=== PATIENT | female | born 1945 | race Caucasian/White ===

== ENCOUNTER 2021-07-14 10:29 | Outpatient (CLI) | payer MEDICARE ==
[~2021-07-14 10:29] MED LIST: ATEN100T88 PO; LEVO75TA6 PO; LVT.025T PO; LVT.05T PO
== END 2021-07-14 10:55 ==
LOC: SLEEP 10:29
PROVIDERS: ATTEND Nurse Practitioner Family
DX: G47.10 Hypersomnia, unspecified (principal); G47.9 Sleep disorder, unspecified
CPT/HCPCS: G0399

== ENCOUNTER → 2021-07-18 | Outpatient (CLI) | payer MEDICARE ==
[~2021-07-18] MED LIST changes: +BARIUM for suspension 96% w/w (Vanilla Silq Medium Density) PO ONE; +BARIUM for suspension 98% w/w (Vanilla Silq High Density) PO ONE
--- NOTE | 2021-07-18 13:06 | Diagnostic Imaging Report ---
INDICATION: Mucous build-up. Patient ingested effervescent crystals as well as thin and thick barium and imaging of the esophagus was performed in multiple obliquities. A total of 0.9 minutes of fluoroscopic time was utilized. Preliminary radiograph of the chest is unremarkable. The esophagus has a smooth contour. No mass or stricture is identified. No hiatal hernia or gastroesophageal reflux was demonstrated. Images of the stomach are unremarkable. IMPRESSION: Unremarkable esophagram. Dictated by: Dictated on workstation # [id number]
== END ==
LOC: RAD 10:32
PROVIDERS: ATTEND Nurse Practitioner Family
DX: R13.12 Dysphagia, oropharyngeal phase (principal); R05.3 Chronic cough; R25.1 Tremor, unspecified
CPT/HCPCS: 74220

== ENCOUNTER 2022-03-19 15:23 | Outpatient (RCR) | payer MEDICARE ==
[~2022-03-19 15:23] MED LIST changes: -BARIUM for suspension 96% w/w (Vanilla Silq Medium Density) PO ONE; -BARIUM for suspension 98% w/w (Vanilla Silq High Density) PO ONE
== END 2022-03-21 | disposition home or self-care (01) ==
PROVIDERS: ATTEND Family Medicine
DX: G20 Parkinson's disease (principal)

== ENCOUNTER 2022-04-17 14:09 | Outpatient (RCR) | payer MEDICARE | END 2022-04-17 14:47 | disposition home or self-care (01) | PROVIDERS: ATTEND Family Medicine | DX: G20 Parkinson's disease (principal) ==

== ENCOUNTER 2022-11-03 05:15 | Observation (INO) | payer MEDICARE, MEDICAID ==
[~2022-11-03] VITALS: Ht 170.1 cm; Wt 98.1 kg
--- NOTE | 2022-11-03 05:29 | ED General ---
General Stated Complaint: SHAKING,DIZZY,BLOOD PRESSURE 203/96 Source of Information: Patient Exam Limitations: No Limitations (JASPAL BEAUCHAMP MD) History of Present Illness Date Seen by Provider: Nov 03, 2022 Time Seen by Provider: 05:27 Initial Comments Patient is a 77yo female with a complaint of increasing "full body" tremors. SHe states she just feels "bad". This morning has a headache/ "pressure" feeling in her head. Also had an episode of chest pain that "just hurts" in the left side - that seems to feel a little better right now. She does take daily baby aspirin. She did not have any other symptoms with the chest pain. SHe denies illness. She has not changed her medications recently nor has she skipped any. No N/V/D or urinary complaints. She does not sleep well - usually only about 4h a night. SHe complains that "drainage" bothers her laying on pillows at night. Timing/Duration: 2-3 Days Severity: Severe Associated Systoms: Chest Pain ("hurts"), Headaches, Malaise, Other ("full body tremors") (JASPAL BEAUCHAMP MD) Allergies and Home Medications Allergies Coded Allergies: No Known Drug Allergies (Unverified , 11/15/09) Patient Home Medication List Home Medication List Reviewed: Yes (JASPAL BEAUCHAMP MD) Atenolol (Tenormin 100 Mg) 100 Mg Tablet, 1 EACH PO DAILY, (Reported) Entered as Reported by: KONRAD BERG on 11/15/09 1330 Levothyroxine Sodium (Levothyroxine 75 Mcg Tab) 75 Mcg Tablet, 75 MCG PO DAILY, (Reported) Entered as Reported by: TRACY KAPADIA on 11/17/13 0834 Review of Systems Review of Systems Constitutional: malaise EENTM: no symptoms reported Respiratory: no symptoms reported Cardiovascular: chest pain Gastrointestinal: no symptoms reported Genitourinary: no symptoms reported : No Musculoskeletal: no symptoms reported Skin: no symptoms reported Psychiatric/Neurological: Tremors (more intense) (JASPAL BEAUCHAMP MD) All Other Systems Reviewed Negative Unless Noted: Yes (JASPAL BEAUCHAMP MD) Past Bbvudat-Rcdpsf-Asocyh Hx Past Medical History Reproductive Disorders: Yes (PMB) (JASPAL BEAUCHAMP MD) Physical Exam Vital Signs Vital Signs - First Documented 11/03/22 05:23 Temp 37.0 Pulse 64 Resp 22 B/P (MAP) 208/107 (140) Pulse Ox 98 O2 Delivery Room Air (ZHENG RASHID MD) Vital Signs Capillary Refill : (JASPAL BEAUCHAMP MD) Height, Weight, BMI Height: 5'7.00" Weight: 178lbs. oz. 80.592826ni; BMI Method:Stated General Appearance: WD/WN, Obese Eyes: Bilateral Eye Normal Inspection, Bilateral Eye PERRL, Bilateral Eye EOMI HEENT: PERRL/EOMI Respiratory: Lungs Clear, Normal Breath Sounds, No Accessory Muscle Use, No Respiratory Distress Cardiovascular: Regular Rate, Rhythm, Normal Peripheral Pulses, Bradycardia (60) Gastrointestinal: Non Tender, Soft Extremity: Normal Capillary Refill, Normal Inspection, Normal Range of Motion, No Pedal Edema Neurologic/Psychiatric: Alert, Oriented x3, Other (coarse full body tremor) Skin: Normal Color, Warm/Dry (JASPAL BEAUCHAMP MD) Progress/Results/Core Measures Suspected Sepsis SIRS Temperature: Pulse: Respiratory Rate: Laboratory Tests 11/03/22 05:30: White Blood Count 6.6 Blood Pressure / Mean: Laboratory Tests 11/03/22 05:30: INR Comment 0.9, Platelet Count 214 (JASPAL BEAUCHAMP MD) Results/Orders Lab Results Laboratory Tests Test 11/03/22 05:30 11/03/22 06:02 11/03/22 07:35 Range/Units White Blood Count 6.6 4.3-11.0 10^3/uL Red Blood Count 4.58 3.80-5.11 10^6/uL Hemoglobin 14.0 11.5-16.0 g/dL Hematocrit 41 35-52 % Mean Corpuscular Volume 90 80-99 fL Mean Corpuscular Hemoglobin 31 25-34 pg Mean Corpuscular Hemoglobin Concent 34 32-36 g/dL Red Cell Distribution Width 12.6 10.0-14.5 % Platelet Count 214 130-400 10^3/uL Mean Platelet Volume 9.3 9.0-12.2 fL Immature Granulocyte % (Auto) 1 % Neutrophils (%) (Auto) 64 42-75 % Lymphocytes (%) (Auto) 23 12-44 % Monocytes (%) (Auto) 7 0-12 % Eosinophils (%) (Auto) 6 0-10 % Basophils (%) (Auto) 1 0-10 % Neutrophils # (Auto) 4.2 1.8-7.8 10^3/uL Lymphocytes # (Auto) 1.5 1.0-4.0 10^3/uL Monocytes # (Auto) 0.4 0.0-1.0 10^3/uL Eosinophils # (Auto) 0.4 H 0.0-0.3 10^3/uL Basophils # (Auto) 0.0 0.0-0.1 10^3/uL Immature Granulocyte # (Auto) 0.0 0.0-0.1 10^3/uL Prothrombin Time 12.3 12.2-14.7 SEC INR Comment 0.9 0.8-1.4 Activated Partial Thromboplast Time 32 24-35 SEC Sodium Level 141 135-145 MMOL/L Potassium Level 3.9 3.6-5.0 MMOL/L Chloride Level 107 98-107 MMOL/L Carbon Dioxide Level 27 21-32 MMOL/L Anion Gap 7 5-14 MMOL/L Blood Urea Nitrogen 20 H 7-18 MG/DL Creatinine 1.32 H 0.60-1.30 MG/DL Estimat Glomerular Filtration Rate 42 BUN/Creatinine Ratio 15 Glucose Level 92 70-105 MG/DL Calcium Level 9.0 8.5-10.1 MG/DL Corrected Calcium 9.0 8.5-10.1 MG/DL Magnesium Level 2.0 1.6-2.4 MG/DL Total Bilirubin 0.5 0.1-1.0 MG/DL Aspartate Amino Transf (AST/SGOT) 20 5-34 U/L Alanine Aminotransferase (ALT/SGPT) 15 0-55 U/L Alkaline Phosphatase 108 40-136 U/L Troponin I < 0.028 <0.028 NG/ML Total Protein 6.9 6.4-8.2 GM/DL Albumin 4.0 3.2-4.5 GM/DL B-Type Natriuretic Peptide 385.8 H <100.0 PG/ML Thyroid Stimulating Hormone (TSH) 6.68 H 0.35-4.94 UIU/ML Free Thyroxine 0.92 0.70-1.48 NG/DL Urine Color YELLOW Urine Clarity CLEAR Urine pH 7.5 5-9 Urine Specific [place] 1.010 L 1.016-1.022 Urine Protein NEGATIVE NEGATIVE Urine Glucose (UA) NEGATIVE NEGATIVE Urine Ketones NEGATIVE NEGATIVE Urine Nitrite NEGATIVE NEGATIVE Urine Bilirubin NEGATIVE NEGATIVE Urine Urobilinogen 0.2 < = 1.0 MG/DL Urine Leukocyte Esterase NEGATIVE NEGATIVE Urine RBC (Auto) NEGATIVE NEGATIVE Urine RBC NONE /HPF Urine WBC NONE /HPF Urine Squamous Epithelial Cells RARE /HPF Urine Crystals NONE /LPF Urine Bacteria NEGATIVE /HPF Urine Casts NONE /LPF Urine Mucus NEGATIVE /LPF Urine Culture Indicated NO (ZHENG RASHID MD) My Orders Orders - ZHENG RASHID MD Bnp Lino (11/03/22 05:59) Thyroid Stimulating Hormone (11/03/22 05:59) Free T4 (Free Thyroxine) (11/03/22 05:59) Ekg Tracing (11/03/22 06:11) Lactated Ringers (Lr 1000 Ml Iv Solution (11/03/22 06:15) Ct Angio Head/Neck (11/03/22 06:14) Iohexol Injection (Omnipaque 350 Mg/Ml 1 (11/03/22 06:30) Received Contrast (Hold Metformin- Contr (11/03/22 06:30) Ns (Ivpb) 100 Ml (Sodium Chloride 0.9% 1 (11/03/22 06:30) Robin Cath (11/03/22 07:32) Covid 19 Inhouse Test (11/03/22 10:06) Influenza A And B By Pcr (11/03/22 10:06) (ZHENG RASHID MD) Medications Given in ED Current Medications Medications Dose Ordered Sig/Citlali Route Start Time Stop Time Status Last Admin Dose Admin Aspirin 81 mg STK-MED ONCE .ROUTE 11/03/22 05:45 11/03/22 05:48 DC 11/03/22 05:51 324 MG Hydralazine HCl 20 mg STK-MED ONCE .ROUTE 11/03/22 05:45 11/03/22 05:48 DC 11/03/22 05:50 20 MG Iohexol 75 ml ONCE ONCE IV 11/03/22 06:30 11/03/22 06:31 DC 11/03/22 07:00 75 ML Lactated Ringer's 1,000 ml @ 200 mls/hr Q5H ONCE IV 11/03/22 06:15 11/03/22 11:14 11/03/22 06:26 200 MLS/HR Sodium Chloride 100 ml ONCE ONCE IV 11/03/22 06:30 11/03/22 06:31 DC 11/03/22 07:00 80 ML (ZHENG RASHID MD) Vital Signs/I&O 11/03/22 05:23 Temp 37.0 Pulse 64 Resp 22 B/P (MAP) 208/107 (140) Pulse Ox 98 O2 Delivery Room Air (ZHENG RASHID MD) Vital Signs/I&O Capillary Refill : (JASPAL BEAUCHAMP MD) Progress Note #1: Time: 06:16 Progress Note Care of this patient was assumed from Dr. Beauchamp at shift change. Clinical history and past medical history were reviewed. Patient had been given hydralazine. Blood pressure has dropped significantly down to 133/60. Patient now feels very lightheaded and states that she is repeatedly "passing out". During my assessment, she appears to be lightheaded and will flop her head to the side periodically. However, she has not completely lost consciousness and responds to voice. On my assessment she has clear lungs with regular rate and rhythm to auscultation. Significant carotid bruit is noted on the right. I am concerned that she has carotid stenosis that has caused decrease cerebral flow with her drop in blood pressure. We will obtain a CT angiogram of head and neck. Her renal function is marginal and her blood pressures have dropped significantly prompting the order of a liter of IV fluid. We will be cautious with administration of the fluid as I do not yet have a chest x-ray or BNP and unaware of her ejection fraction. Progress Note #2: Time: 06:25 Progress Note Patient remains alert at this time. She had a blood pressure dropped down to 79/56. Her IV fluids are now bolusing. A repeat blood pressure after being placed in a partial Trendelenburg with her head at about 15 degrees in her legs raised about 15 degrees was 147/69. We will halt CT angiogram until we have at least 1 more acceptable blood pressure. Progress Note #3: Time: 09:12 Progress Note Patient has not been monitored quite closely. She has continued to have labile blood pressures. Systolic blood pressure has been as low as 122 and as high as 168 over the past few hours. She received a full liter of LR and feels much improved. She is no longer feeling significantly lightheaded and the near sync opal episodes have stopped. She is alert and jovial with a good sense of humor. CT angiogram was reviewed by me. Plaquing in the right carotid near the bifurcation was noted. On review of the radiologist's report stenosis of 50% was noted. This is not critical and symptoms of near syncope have resolved with hydration. The remainder of the CT reads by the radiologist were reviewed and no other significant acute findings or pathologies were reported. Labs were reviewed in their entirety including CBC, CMP, troponin, magnesium, BNP, coag panel, and thyroid studies. BNP was mildly elevated at 385 and TSH was mildly elevated at 6.68. Labs were otherwise unremarkable by my interpretation. Chest x-ray was viewed by me and was relatively unremarkable by my interpretation. Radiologist's report indicated mild cardiomegaly and mild vascular congestion. Patient has been having a lot of difficulty with clearing phlegm which she believes originates from sinus drainage. She takes an allergy pill daily. She previously took nasal sprays but has not taken them for months. Patient was able to cough up some phlegm and now feels much better in regard to her breathing and swallowing. A barium swallow study was recently performed and results were reviewed. Report notes a normal barium swallow study. I am uncomfortable with the extreme hypertension the patient presented with and the extreme response she had to treatment resulting in numerous near syncopal episodes. Although she is much improved at present, I am recommending admission for further observation and evaluation of her blood pressure problems as well as her tremor. Patient notes that she has not received her morning medications yet. Progress Note #4: Time: 10:11 Progress Note Patient has been relatively stable. Present blood pressure is 149/72. I have discussed the case with Dr. Hawkins as admitting hospitalist and Dr. Mccormack as consulting supervisor model making. Dr. Hawkins requested admission for observation to the cardiac stepdown unit with the cardiology consultation. She also requested a COVID/flu swab be obtained. I discussed CODE STATUS with the patient and family. Patient remains full code at this time. (ZHENG RASHID MD) ECG Initial ECG Impression Date: Nov 03, 2022 Initial ECG Impression Time: 05:40 Initial ECG Rate: 60 Initial ECG Rhythm: Normal Sinus, S.Puma Initial ECG Intervals: Normal Initial ECG Impression: Normal (JASPAL BEAUCHAMP MD) Diagnostic Imaging Diagonstic Imaging: Xray Plain Films/CT/US/NM/MRI: chest Comments NAME: RYAN DEVINE [facility] REC#: [id number] PT STATUS: REG ER : 1945 PHYSICIAN: JASPAL BEAUCHAMP MD ADMIT DATE: 11/03/22/ER Draft Date of Exam:11/03/22 CHEST 1 VIEW, AP/PA ONLY HISTORY: Chest pain TECHNIQUE: Frontal view the chest COMPARISON: None FINDINGS: Lung volumes are large. No consolidation is seen. There is mild cardiomegaly with mild central vascular congestion. There is no large effusion or pneumothorax. IMPRESSION: 1. Mild cardiomegaly with mild central vascular congestion. Dictated on workstation # [id number] Dict: 11/03/2221 Trans: 11/03/22 0724 [facility] [id number] Interpreted by: TOD COLES MD Diagonstic Imaging: CT Plain Films/CT/US/NM/MRI: other (Angiogram head and neck) Comments NAME: RYAN DEVINE [facility] REC#: [id number] PT STATUS: REG ER : 1945 PHYSICIAN: ZHENG RASHID MD ADMIT DATE: 11/03/22/ER Draft Date of Exam:11/03/22 CT ANGIO HEAD/NECK PROCEDURE: CT angiography of the head and CT angiography of the neck with and without contrast. TECHNIQUE: Contiguous noncontrast images were obtained from the skull base through the vertex. After intravenous contrast administration, helical CT angiography of the neck was performed. Source data was reformatted into 3D MIP projections. Delayed post contrast acquisition was also obtained. Auto Exposure Controls were utilized during the CT exam to meet ALARA standards for radiation dose reduction. INDICATION: Carotid bruit, syncope, dizziness tremors COMPARISON: None FINDINGS: The precontrast images of the head demonstrate generalized parenchymal volume loss. There is no midline shift or mass effect. No acute intracranial hemorrhage is seen. There is no CT evidence of acute territorial ischemia. The calvarium appears intact. There is hyperostosis frontalis. Visualized paranasal sinuses appear clear. Postcontrast images demonstrate no enhancing lesions. The right common carotid artery demonstrates atherosclerosis distally at the bifurcation with about 50% narrowing. The right internal carotid artery is patent. The left internal carotid artery is widely patent. The left common carotid artery demonstrates mild atherosclerosis. The right vertebral artery is dominant. No abnormalities are seen in the bilateral vertebral arteries. The anterior communicating artery is not well seen. The anterior cerebral arteries appear to be widely patent bilaterally. The middle cerebral arteries are widely patent. The posterior communicating arteries are faintly visible. The posterior cerebral arteries appear normal. The superior cerebellar arteries are normal. The basilar artery appears normal. The dural sinuses demonstrate no filling defects to suggest thrombus. There are degenerative changes in the spine. No acute abnormalities seen in the surrounding soft tissues. IMPRESSION: 1. Atherosclerosis at the right carotid bifurcation causing about 50% stenosis. No other findings of stenosis or large vessel occlusion are seen in the head and neck. 2. No acute intracranial hemorrhage or CT evidence of acute territorial ischemia. Dictated on workstation # [id number] Dict: 11/03/22 0721 Trans: 11/03/22 0756 [facility] [id number] Interpreted by: TOD COLES MD (ZHENG RASHID MD) Departure Communication (Admissions) Time/Spoke to Admitting Phy: 10:07 Dr. Hawkins Time/Spoke to Consulting Phy: 10:08 Dr. Mccormack (ZHENG RASHID MD) Impression Primary Impression: Hypertensive urgency Additional Impressions: Hypotension Qualified Codes: I95.9 - Hypotension, unspecified Near syncope Tremor Disposition: ADMITTED INPATIENT Condition: Improved Admissions Decision to Admit Reason: Admit from ER (General) Decision to Admit/Date: Nov 03, 2022 Time/Decision to Admit Time: 10:07 (ZHENG RASHID MD) Departure-Patient Inst. Referrals: RAYMOND CEDILLO MD (PCP/Family) Primary Care Physician JASPAL BEAUCHAMP MD Nov 03, 2022 05:28 ZHENG RASHID MD Nov 03, 2022 06:19
[2022-11-03] MEDS ORDERED: hydrALAZINE INJECTION 20 MG/ML VIAL ONE (05:45)
[2022-11-03] MEDS ORDERED: ASPIRIN 81 MG CHEWABLE TABLET ONE (05:45)
[2022-11-03 05:48] LABS: BASOPHILS % (AUTO) 1 % (0-10); EOSINOPHILS # (AUTO) 0.4 10^3/uL (0.0-0.3); EOSINOPHILS % (AUTO) 6 % (0-10); HEMATOCRIT 41 % (35-52); LYMPHOCYTES # (AUTO) 1.5 10^3/uL (1.0-4.0); LYMPHOCYTES % (AUTO) 23 % (12-44); MEAN CORPUSCULAR HEMOGLOBIN 31 pg (25-34); MEAN CORPUSCULAR HGB CONC 34 g/dL (32-36); MEAN CORPUSCULAR VOLUME 90 fL (80-99); MEAN PLATELET VOLUME 9.3 fL (9.0-12.2); MONOCYTES # (AUTO) 0.4 10^3/uL (0.0-1.0); MONOCYTES % (AUTO) 7 % (0-12); NEUTROPHILS # (AUTO) 4.2 10^3/uL (1.8-7.8); NEUTROPHILS % (AUTO) 64 % (42-75); PLATELET COUNT 214 10^3/uL (130-400); WHITE BLOOD COUNT 6.6 10^3/uL (4.3-11.0)
[2022-11-03 05:53] LABS: INR 0.9 (0.8-1.4); PROTHROMBIN TIME PATIENT 12.3 SEC (12.2-14.7)
[2022-11-03 06:00] LABS: ALANINE AMINOTRANSFERASE 15 U/L (0-55); ALKALINE PHOSPHATASE 108 U/L (40-136); BILIRUBIN,TOTAL 0.5 MG/DL (0.1-1.0); BUN/CREATININE RATIO 15; CARBON DIOXIDE 27 MMOL/L (21-32); CHLORIDE 107 MMOL/L (98-107); CREATININE SERUM 1.32 MG/DL (0.60-1.30); GFR ESTIMATED 42; GLUCOSE 92 MG/DL (70-105); POTASSIUM 3.9 MMOL/L (3.6-5.0); SODIUM 141 MMOL/L (135-145); TOTAL PROTEIN 6.9 GM/DL (6.4-8.2)
[2022-11-03] MEDS ORDERED: LACTATED RINGERS 1,000 ML IV ONE (06:15)
[2022-11-03] MEDS ORDERED: NS 100 ML (IVPB) BAG IV ONE (06:30)
[2022-11-03] MEDS ORDERED: IOHEXOL 350 MG/ML 100 ML (OMNIPAQUE 350) VIAL IV ONE (06:30)
[2022-11-03] MEDS ORDERED: HOLD METFORMIN - RECEIVED CONTRAST 20 ML VIAL IV SCH (06:30)
[2022-11-03 06:48] LABS: FREE T4 (FREE THYROXINE) 0.92 NG/DL (0.70-1.48)
--- NOTE | 2022-11-03 07:24 | Diagnostic Imaging Report ---
HISTORY: Chest pain TECHNIQUE: Frontal view the chest COMPARISON: None FINDINGS: Lung volumes are large. No consolidation is seen. There is mild cardiomegaly with mild central vascular congestion. There is no large effusion or pneumothorax. IMPRESSION: 1. Mild cardiomegaly with mild central vascular congestion. Dictated by: Dictated on workstation # [id number]
[2022-11-03 07:53] LABS: BACTERIA,URINE NEGATIVE /HPF; BILIRUBIN,URINE NEGATIVE (NEGATIVE); CLARITY,URINE CLEAR; COLOR,URINE YELLOW; GLUCOSE, URINE (UA) NEGATIVE (NEGATIVE); KETONES,URINE NEGATIVE (NEGATIVE); LEUKOCYTE ESTERASE ,URINE NEGATIVE (NEGATIVE); NITRITE,URINE NEGATIVE (NEGATIVE); PH,URINE 7.5 (5-9); PROTEIN,URINE NEGATIVE (NEGATIVE); SQUAMOUS EPITHELIAL CELL,UR RARE /HPF
--- NOTE | 2022-11-03 07:56 | Diagnostic Imaging Report ---
PROCEDURE: CT angiography of the head and CT angiography of the neck with and without contrast. TECHNIQUE: Contiguous noncontrast images were obtained from the skull base through the vertex. After intravenous contrast administration, helical CT angiography of the neck was performed. Source data was reformatted into 3D MIP projections. Delayed post contrast acquisition was also obtained. Auto Exposure Controls were utilized during the CT exam to meet ALARA standards for radiation dose reduction. INDICATION: Carotid bruit, syncope, dizziness tremors COMPARISON: None FINDINGS: The precontrast images of the head demonstrate generalized parenchymal volume loss. There is no midline shift or mass effect. No acute intracranial hemorrhage is seen. There is no CT evidence of acute territorial ischemia. The calvarium appears intact. There is hyperostosis frontalis. Visualized paranasal sinuses appear clear. Postcontrast images demonstrate no enhancing lesions. The right common carotid artery demonstrates atherosclerosis distally at the bifurcation with about 50% narrowing. The right internal carotid artery is patent. The left internal carotid artery is widely patent. The left common carotid artery demonstrates mild atherosclerosis. The right vertebral artery is dominant. No abnormalities are seen in the bilateral vertebral arteries. The anterior communicating artery is not well seen. The anterior cerebral arteries appear to be widely patent bilaterally. The middle cerebral arteries are widely patent. The posterior communicating arteries are faintly visible. The posterior cerebral arteries appear normal. The superior cerebellar arteries are normal. The basilar artery appears normal. The dural sinuses demonstrate no filling defects to suggest thrombus. There are degenerative changes in the spine. No acute abnormalities seen in the surrounding soft tissues. IMPRESSION: 1. Atherosclerosis at the right carotid bifurcation causing about 50% stenosis. No other findings of stenosis or large vessel occlusion are seen in the head and neck. 2. No acute intracranial hemorrhage or CT evidence of acute territorial ischemia. Dictated by: Dictated on workstation # [id number]
[2022-11-03 11:56] VITALS: BP 163/83
[2022-11-03] MEDS ORDERED: ACETAMINOPHEN 325 MG TABLET PO PRN (12:00)
[2022-11-03] MEDS ORDERED: ALPRAZolam 0.25 MG TABLET PO PRN (12:00)
[2022-11-03] MEDS ORDERED: BISACODYL 10 MG SUPPOSITORY PR PRN (12:00)
[2022-11-03] MEDS ORDERED: ONDANSETRON 4 MG (ZOFRAN) ORAL DISSOLVE TAB PO PRN (12:00)
[2022-11-03] MEDS ORDERED: HYDROmorphone INJECTION 2 MG/ML VIAL IV PRN (12:00)
[2022-11-03] MEDS ORDERED: ENOXAPARIN 40 MG/0.4 ML SYRINGE SC SCH (12:00)
[2022-11-03] MEDS ORDERED: polyethylene glycoL POWDER 17 GM (MIRALAX) PACK PO PRN (12:00)
[2022-11-03] MEDS ORDERED: ANTACID SUSPENSION 30 ML UDC PO PRN (12:00)
[2022-11-03] MEDS ORDERED: CALCIUM CARBONATE 500 MG CHEW TABLET PO PRN (12:00)
[2022-11-03] MEDS ORDERED: diphenhydrAMINE INJ 50 MG/ML VIAL IVP PRN (12:00)
[2022-11-03] MEDS ORDERED: MILK OF MAGNESIA 400 MG/5 ML 30 ML UDC PO PRN (12:00)
[2022-11-03] MEDS ORDERED: diphenhydrAMINE 25 MG TABLET PO PRN (12:00)
[2022-11-03] MEDS ORDERED: LACTULOSE SYRUP 10GM/15ML 30ML UDC PO PRN (12:00)
[2022-11-03] MEDS ORDERED: MELATONIN 3 MG TABLET PO PRN (12:00)
[2022-11-03] MEDS ORDERED: oxyCODONE IMMEDIATE RELEASE 5 MG TABLET PO PRN (12:00)
[2022-11-03] MEDS ORDERED: ONDANSETRON 4 MG/2 ML (SDV) Z0FRAN IV PRN (12:00)
[2022-11-03] MEDS: NS IV 1000 ML 1,000 ML IV SCH (12:46)
[2022-11-03] MEDS ORDERED: RT-ALBUTEROL SULF 2.5 MG/3 ML PRE-MIX VIAL INH PRN (13:30)
[2022-11-03] MEDS: LOSARTAN 100 MG TABLET PO SCH (13:53)
[2022-11-03] MEDS ORDERED: ASPI-1238 PO (14:25)
[2022-11-03] MEDS ORDERED: LEVO125T6 PO ×2 (14:25)
[2022-11-03] MEDS ORDERED: ATEN50TA PO (14:25)
[2022-11-03] MEDS ORDERED: PRAM0.5T9 PO (14:25)
[2022-11-03] MEDS ORDERED: LORA10TA7 PO (14:25)
[2022-11-03] MEDS ORDERED: MULT-1136 PO (14:25)
--- NOTE | 2022-11-03 14:39 | History & Physical ---
SUTTON 11/03/22 1439: History of Present Illness History of Present Illness Reason for visit/HPI CC: Orthostasis & hypertensive urgency HPI: 77 y/o female with significant history of hypothyroidism and essential tremors in the hand presented to the ED with full body tremors, blood pressure of 208/107 and left sided chest pain. On 11/02/22 the patient said she felt foggy and dizzy in her head and woke up the next morning with full body tremors and her home bp monitor read 207/96. Her grandson and daughter brought her into the ER and stated she normally has an essential tremor isolated to her hands but has had multiple full body tremors since the yesterday which has never occurred before. While in the ED patient has been through multiple near syncope episodes with the longest lasting 45 sec. She says she feels dizzy with her head dropping sideways, but can still hear everything and is able to jump right back into conversation. Her family says it occurs when she sits up past a certain point so they keep her reclined. Patients blood pressure has been fluctuating from 120's to the 160's but she has not had another full body tremor or syncopal episode. The left chest pain does not radiate and she does not report any symptoms of nausea or vomiting. She did note a headache that has been present since her tremors started but when I met her she said she felt less pressure. Initial labs showed a pre-renal BRETT and CTA showed a plaque in the right carotid near the bi furcation with 50% stenosis. CT of the chest showed mild cardiomegaly with vascular congestion. Date of Admission Nov 03, 2022 at 11:24 Date Seen by a Provider: Nov 03, 2022 Time Seen by a Provider: 10:30 I consulted on this patient on 11/03/22 14:31 Attending Physician Irish Guerra MD Admitting Physician Admitting Physician: Philly Mcrae DO Attending Physician: Philly Mcrae DO Consult Allergies and Home Medications Allergies Coded Allergies: No Known Allergies (Unverified Allergy, Unknown, 11/03/22) Patient and related family reported no known allergies Patient Home Medication List Home Medication List Reviewed: Yes Aspirin (Aspirin EC) 81 Mg Tablet.dr 81 MG PO 1200, (Reported) Entered as Reported by: ERLIN SHERIDAN on 8/1424 Last Action: Reviewed Atenolol (Atenolol) 50 Mg Tablet, 100 MG PO BID, (Reported) Entered as Reported by: ERLIN SHERIDAN on 11/03/221424 Last Action: Reviewed Levothyroxine Sodium (Levothyroxine Sodium) 125 Mcg Tablet, 125 MG PO MO,,WE,TH,FR, (Reported) Entered as Reported by: ERLIN SHERIDAN on 11/03/221424 Last Action: Reviewed Levothyroxine Sodium (Levothyroxine Sodium) 125 Mcg Tablet, 62.5 MCG PO GOMEZ,SA, (Reported) Entered as Reported by: ERLIN SHERIDAN on 11/03/221424 Last Action: Reviewed Loratadine (Loratadine) 10 Mg Tablet, 10 MG PO HS, (Reported) Entered as Reported by: ERLIN SHERIDAN on 11/03/221424 Last Action: Reviewed Multivitamin (Multivitamin) 1 Each Tablet, 1 EACH PO DAILY, (Reported) Entered as Reported by: ERLIN SHERIDAN on 11/03/221424 Last Action: Reviewed Pramipexole Di-HCl (Pramipexole Dihydrochloride) 0.5 Mg Tablet, 0.5 MG PO BID, (Reported) Entered as Reported by: ERLIN SHERIDAN on 11/03/221424 Last Action: Reviewed Discontinued Medications Atenolol (Tenormin 100 Mg) 100 Mg Tablet, 1 EACH PO DAILY, (Reported) Discontinued Reason: No Longer Taking Entered as Reported by: KONRAD BERG on 11/15/09 1330 Last Action: Discontinued Levothyroxine Sodium (Levothyroxine 75 Mcg Tab) 75 Mcg Tablet, 75 MCG PO DAILY, (Reported) Discontinued Reason: No Longer Taking Entered as Reported by: TRACY KAPADIA on 11/17/13 0834 Last Action: Discontinued Past Fzvhuqz-Aycuta-Atigbb Hx Patient Social History Tobacco Use?: No Smoking Status: Former Smoker Substance use?: No Alcohol Use?: No Pt feels they are or have been: No Immunizations Up To Date First/Initial COVID19 Vaccinat: X3 Date of Pneumonia Vaccine: Nov 15, 2009 Seasonal Allergies Seasonal Allergies: Yes Current Status status: No status: No Advance Directives: No Communicates: Verbally Primary Language: Japanese Preferred Spoken Language: Japanese Is interpretation needed?: No Sensory deficits: Vision impairment, Hearing impairment Implanted or Applied Medical D: None Past Medical History Hypothyroidsim D&C surgery 5 years ago Review of Systems Constitutional: No chills; dizziness; No fever, No malaise, No weakness Respiratory: No cough, No dyspnea on exertion, No short of breath, No stridor, No wheezing Cardiovascular: see HPI Gastrointestinal: no symptoms reported Skin: no symptoms reported Psychiatric/Neurological: Headache; Denies Numbness, Denies Paresthesia; Tremors; Denies Weakness Physical Exam Vital Signs Vital Signs - First Documented 11/03/22 05:23 Temp 37.0 Pulse 64 Resp 22 B/P (MAP) 208/107 (140) Pulse Ox 98 O2 Delivery Room Air Capillary Refill : Less Than 3 Seconds Height, Weight, BMI Height: 5'7.00" Weight: 178lbs. oz. 80.675558zu; 29.75 BMI Method:Stated General Appearance: No Apparent Distress Neck: Carotid Bruit Respiratory: Chest Non Tender, Lungs Clear, Normal Breath Sounds, No Accessory Muscle Use, No Respiratory Distress Cardiovascular: Regular Rate, Rhythm Gastrointestinal: No Organomegaly, No Pulsatile Mass, Non Tender, Soft, Abnormal Bowel Sounds (quiet bowel sounds ) Neurologic/Psychiatric: Alert, Oriented x3 Assessment/Plan Assessment and Plan Assessment: B/l essential tremor - suspected Parkinson's hyper & hypotension pre-renal BRETT orthostasis hypothyroidism increased fall risk due to advanced age athersclerosis cardiomegaly w/ vascular congestion Plan: Continue monitoring BP and vitals Fall risk Follow up with US of carotid stenosis Admission Diagnosis Admission Status: Inpatient Order (span 2 midnights) Reason for Inpatient Admission: orthostasis Clinical Quality Measures AMI/AHF: ASA po Prior to arrival: Yes PHILLY MCRAE DO 11/03/222034: Allergies and Home Medications Allergies Coded Allergies: No Known Allergies (Unverified Allergy, Unknown, 11/03/22) Patient and related family reported no known allergies Patient Home Medication List Aspirin (Aspirin EC) 81 Mg Tablet., 81 MG PO 1200, (Reported) Entered as Reported by: ERLIN SHERIDAN on 11/03/22 1425 Last Action: Reviewed Atenolol (Atenolol) 50 Mg Tablet, 100 MG PO BID, (Reported) Entered as Reported by: ERLIN SHERIDAN on 11/03/221424 Last Action: Reviewed Levothyroxine Sodium (Levothyroxine Sodium) 125 Mcg Tablet, 125 MG PO MO,,WE,TH,FR, (Reported) Entered as Reported by: ERLIN SHERIDAN on 11/03/221424 Last Action: Reviewed Levothyroxine Sodium (Levothyroxine Sodium) 125 Mcg Tablet, 62.5 MCG PO GOMEZ,SA, (Reported) Entered as Reported by: ERLIN SHERIDAN on 11/03/221424 Last Action: Reviewed Loratadine (Loratadine) 10 Mg Tablet, 10 MG PO HS, (Reported) Entered as Reported by: ERLIN SHERIDAN on 11/03/221424 Last Action: Reviewed Multivitamin (Multivitamin) 1 Each Tablet, 1 EACH PO DAILY, (Reported) Entered as Reported by: ERLIN SHERIDAN on 11/03/221424 Last Action: Reviewed Pramipexole Di-HCl (Pramipexole Dihydrochloride) 0.5 Mg Tablet, 0.5 MG PO BID, (Reported) Entered as Reported by: ERLIN SHERIDAN on 11/03/221424 Last Action: Reviewed Discontinued Medications Atenolol (Tenormin 100 Mg) 100 Mg Tablet, 1 EACH PO DAILY, (Reported) Discontinued Reason: No Longer Taking Entered as Reported by: KONRAD BERG on 11/15/09 1330 Last Action: Discontinued Levothyroxine Sodium (Levothyroxine 75 Mcg Tab) 75 Mcg Tablet, 75 MCG PO DAILY, (Reported) Discontinued Reason: No Longer Taking Entered as Reported by: TRACY KAPADIA on 11/17/13 0834 Last Action: Discontinued Assessment/Plan Assessment and Plan Problems: (1) Near syncope Status: Acute (2) Hypertensive urgency Status: Acute (3) Hypotension Status: Acute Qualifiers: Qualified Codes: I95.9 - Hypotension, unspecified (4) Tremor Status: Acute Admission Diagnosis Admission Status: Observation Supervisory-Addendum Brief Verification & Attestation Participated in pt care: history, MDM, physical Personally performed: exam, history, MDM, supervision of care Care discussed with: Medical Student Procedures: n/a Results interpretation: Verified all documentation Verification and Attestation of Medical Student E/M Service A medical student performed and documented this service in my presence. I reviewed and verified all information documented by the medical student and made modifications to such information, when appropriate. I personally performed the physical exam and medical decision making. Philly Mcrae, Nov 03, 2022,20:34 [place] Nov 03, 2022 14:39 PHILLY MCRAE DO Nov 03, 2022 20:35
[2022-11-03 16:00] VITALS: BP 153/75
--- NOTE | 2022-11-03 16:30 | Diagnostic Imaging Report ---
PROCEDURE: US carotid duplex, bilateral. TECHNIQUE: Multiple real-time grayscale images were obtained over the carotid arteries in various projections, bilaterally. Additional spectral analysis and color Doppler duplex images were also obtained. INDICATION: Syncope and hypertensive urgency. FINDINGS: There is minimal plaquing bilaterally. No significant velocity elevation is seen. No high-grade stenosis is identified. Both vertebral arteries show antegrade flow. IMPRESSION: No evidence of a hemodynamically significant stenosis. Parameters based on the consensus panel Ceron-Scale and Doppler ultrasound criteria published January 2003, Radiology, Volume 229. DOPPLER (peak systolic velocity M/S Right Left CCA .93 1.13 ICA Proximal 1.17 .65 ICA Mid 1.30 1.01 ICA Distal .55 .90 RATIO 2.07 .89 ECA 2.02 1.88 VERT .59 .28 Dictated by: Dictated on workstation # [id number]
[2022-11-03 20:00] VITALS: BP 153/75
[2022-11-03] MEDS ORDERED: LEVOTHYROXINE 125 MCG TABLET PO SCH (20:45)
[2022-11-03] MEDS ORDERED: LORATADINE 10 MG TABLET PO SCH (21:00)
[2022-11-03 21:45] VITALS: BP 147/63
[2022-11-03] MEDS: SENNOSIDES 8.6 MG (SENOKOT) TAB PO SCH (21:58)
[2022-11-03] MEDS: DOCUSATE SODIUM 100 MG CAPSULE PO SCH (21:58)
[2022-11-03] MEDS: LEVOTHYROXINE 125 MCG TABLET PO SCH (22:02)
[2022-11-03] MEDS: ATENOLOL 25 MG TABLET PO SCH (22:04)
[2022-11-03] MEDS: PRAMIPEXOLE 0.5 MG TABLET PO SCH (22:04)
[2022-11-04] VITALS: BP 159/75
[2022-11-04] MEDS: NS IV 1000 ML 1,000 ML IV SCH (02:28)
[2022-11-04 04:00] VITALS: BP 157/71
[2022-11-04 04:59] LABS: BASOPHILS % (AUTO) 1 % (0-10); EOSINOPHILS # (AUTO) 0.4 10^3/uL (0.0-0.3); EOSINOPHILS % (AUTO) 6 % (0-10); HEMATOCRIT 37 % (35-52); HEMOGLOBIN 12.5 g/dL (11.5-16.0); LYMPHOCYTES # (AUTO) 1.5 10^3/uL (1.0-4.0); LYMPHOCYTES % (AUTO) 23 % (12-44); MEAN CORPUSCULAR HEMOGLOBIN 30 pg (25-34); MEAN CORPUSCULAR HGB CONC 33 g/dL (32-36); MEAN CORPUSCULAR VOLUME 90 fL (80-99); MEAN PLATELET VOLUME 9.3 fL (9.0-12.2); MONOCYTES # (AUTO) 0.4 10^3/uL (0.0-1.0); MONOCYTES % (AUTO) 7 % (0-12); NEUTROPHILS # (AUTO) 4.2 10^3/uL (1.8-7.8); NEUTROPHILS % (AUTO) 64 % (42-75); PLATELET COUNT 184 10^3/uL (130-400); WHITE BLOOD COUNT 6.6 10^3/uL (4.3-11.0)
[2022-11-04 05:11] LABS: ALBUMIN 3.2 GM/DL (3.2-4.5); POTASSIUM 3.9 MMOL/L (3.6-5.0)
[2022-11-04 05:13] LABS: CALCIUM 8.3 MG/DL (8.5-10.1)
[2022-11-04 05:14] LABS: TOTAL PROTEIN 5.9 GM/DL (6.4-8.2)
[2022-11-04 05:16] LABS: BILIRUBIN,TOTAL 0.5 MG/DL (0.1-1.0)
[2022-11-04 05:17] LABS: CREATININE SERUM 1.3 MG/DL (0.60-1.30)
[2022-11-04] MEDS: LEVOTHYROXINE 125 MCG TABLET PO SCH (06:25)
[2022-11-04] MEDS ORDERED: THERAPEUTIC MULTIVITAMIN W/MINERALS TABLET PO SCH (07:00)
[2022-11-04 07:42] VITALS: BP 154/79
[2022-11-04] MEDS: LOSARTAN 100 MG TABLET PO SCH (08:24)
[2022-11-04] MEDS: ATENOLOL 25 MG TABLET PO SCH (08:24)
[2022-11-04] MEDS: PRAMIPEXOLE 0.5 MG TABLET PO SCH (08:24)
[2022-11-04] MEDS: SENNOSIDES 8.6 MG (SENOKOT) TAB PO SCH (08:40)
[2022-11-04] MEDS: DOCUSATE SODIUM 100 MG CAPSULE PO SCH (08:40)
--- NOTE | 2022-11-04 10:42 | Consultation-Cardiology ---
HPI-Cardiology Cardiology Consultation Date of Consultation 11/04/22 Date of Admission Time Seen by Provider: 10:30 Indication: Hypertensive urgency HPI Patient is a 77 y/o female with history of Parkinson's dz, MARIANA. Presented to the ER with complaints of ENGEL and shakiness. BP noted to be elevated. Was given hydralazine with improvement of her BP but became dizzy and was having labile HTN. Was admitted for further observation. Patient is denying any chest pain, dyspnea or any further dizziness. Denies any syncope. Home Medications & Allergies Allergies: Coded Allergies: No Known Allergies (Unverified Allergy, Unknown, 11/03/22) Patient and related family reported no known allergies Home Medication List Reviewed: Yes SBD-Klecja-Ajzdgb Hx Patient Social History Employed/Student: retired Smoking Status: Former Smoker Alcohol Use?: No Immunizations Up To Date Date of Pneumonia Vaccine: Nov 15, 2009 Past Medical History HTN, Parkinsons, MARIANA Review of Systems-General Review of Systems Constitutional: No chills; dizziness; No fever, No malaise, No weakness EENTM: no symptoms reported Respiratory: No cough, No dyspnea on exertion, No short of breath, No stridor, No wheezing Cardiovascular: see HPI Gastrointestinal: no symptoms reported Genitourinary: no symptoms reported : No Musculoskeletal: no symptoms reported Skin: no symptoms reported Psychiatric/Neurological: Headache; Denies Numbness, Denies Paresthesia; Tremors; Denies Weakness All Other Systems Reviewed Negative Unless Noted: Yes Reviewed Test Results Reviewed Test Results Lab Laboratory Tests 11/04/22 04:49: White Blood Count 6.6, Red Blood Count 4.18, Hemoglobin 12.5, Hematocrit 37, Mean Corpuscular Volume 90, Mean Corpuscular Hemoglobin 30, Mean Corpuscular Hemoglobin Concent 33, Red Cell Distribution Width 13.0, Platelet Count 184, Mean Platelet Volume 9.3, Immature Granulocyte % (Auto) 1, Neutrophils (%) (Auto) 64, Lymphocytes (%) (Auto) 23, Monocytes (%) (Auto) 7, Eosinophils (%) (Auto) 6, Basophils (%) (Auto) 1, Neutrophils # (Auto) 4.2, Lymphocytes # (Auto) 1.5, Monocytes # (Auto) 0.4, Eosinophils # (Auto) 0.4H, Basophils # (Auto) 0.0, Immature Granulocyte # (Auto) 0.0, Sodium Level 142, Potassium Level 3.9, Chloride Level 111H, Carbon Dioxide Level 25, Anion Gap 6, Blood Urea Nitrogen 18, Creatinine 1.30, Estimat Glomerular Filtration Rate 43, BUN/Creatinine Ratio 14, Glucose Level 92, Calcium Level 8.3L, Corrected Calcium 8.9, Total Bilirubin 0.5, Aspartate Amino Transf (AST/SGOT) 18, Alanine Aminotransferase (ALT/SGPT) 13, Alkaline Phosphatase 87, Total Protein 5.9L, Albumin 3.2 ECG Impression ECG Initial ECG Rhythm: Normal Sinus Physical Exam Physical Exam Vital Signs Vital Signs - First Documented 11/03/22 05:23 Temp 37.0 Pulse 64 Resp 22 B/P (MAP) 208/107 (140) Pulse Ox 98 O2 Delivery Room Air Capillary Refill : Less Than 3 Seconds Height, Weight, BMI Height: 5'7.00" Weight: 178lbs. oz. 80.734481mg; 33.90 BMI Method:Stated General Appearance: No Apparent Distress Eyes: Bilateral Eye Normal Inspection, Bilateral Eye PERRL, Bilateral Eye EOMI HEENT: PERRL/EOMI Neck: Carotid Bruit Respiratory: Chest Non Tender, Lungs Clear, Normal Breath Sounds, No Accessory Muscle Use, No Respiratory Distress Cardiovascular: Regular Rate, Rhythm Gastrointestinal: No Organomegaly, No Pulsatile Mass, Non Tender, Soft, Abnormal Bowel Sounds (quiet bowel sounds ) Extremity: Normal Capillary Refill, Normal Inspection, Normal Range of Motion, No Pedal Edema Neurologic/Psychiatric: Alert, Oriented x3 Skin: Normal Color, Warm/Dry A/P-Cardiology Admission Diagnosis Hypertensive urgency Labile HTN Parkinson's Hypothyroidism Assessment/Plan Hypertensive urgency, blood pressure better controlled. Was having labile HTN after given hydralazine, now improved. Currently on atenolol and losartan. 2D Echo done showing normal LV, EF 55-60%. Grade 1 diastolic dysfunction, PA 30- 35mmHg. Essential tremor Hypothyroidism, TSH elevated. Maintained on levothyroxine. Management per medical services MARIANA Thank you for allowing us to participate in the management of Ms. Chun. This is Nliam Foster PA-C, as a scribe for Dr. Mccormack. Patient was seen and evaluated with Nilam, I interviewed and examined the patient and discussed the management plan with Nilam, agree with the current scribed note Patient was admitted with hypertensive emergency/urgency, blood pressure was elevated responded to hydralazine but became more symptomatic with dizziness and lightheadedness Tolerating atenolol and losartan well. Echocardiogram showed normal LV size with ejection fraction 55 to 60% Patient has essential tremor which has been worsening recently Hypothyroidism Okay for discharge and follow-up as an outpatient I communicated with the patient and her daughter regarding the follow-up as an outpatient Clinical Quality Measures AMI/AHF: ASA po Prior to arrival: Yes NILAM BOYCE Nov 04, 2022 10:42 AGUSTINA MCCORMACK MD Nov 04, 2022 16:28
--- NOTE | 2022-11-04 11:05 | Physical Therapy Evaluation ---
PT Evaluation-General Medical Diagnosis Admission Date Nov 03, 2022 at 11:24 Medical Diagnosis: Essential Tremor, HTN Onset Date: Nov 03, 2022 Therapy Diagnosis Therapy Diagnosis: Gait deficit Height/Weight Height (Feet): 5 Height (Inches): 7.00 Weight (Pounds): 178 Precautions Precautions/Isolations: Fall Prevention, Standard Precautions Weight Bear Status Right Lower Extremity: Right Full Weight Bearing Left Lower Extremity: Left Full Weight Bearing Referral Physician: Dr. Hawkins Reason for Referral: Evaluation/Treatment Medical History Reviewed History: Yes Social History Home: Single Level Current Living Status: Other Family Entry Into Home: Stairs With Railing PT Steps Into Home: 2 Prior Prior Level of Function SCALE: Activities may be completed with or without assistive devices. 0-Qxuqprudqv-bnsaifm completes the activity by him/herself with no assistance from a helper. 5-Set-up or Clean-up Assistance-helper sets up or cleans up; patient completes activity. [place] assists only prior to or following the activity. 4-Supervision or Touching Assistance-helper provides verbal cues and/or touching/steadying and/or contact guard assistance as patient completes activity. Assistance may be provided throughout the activity or intermittently. 3-Partial/Moderate Assistance-helper does LESS THAN HALF the effort. [place] lifts, holds or supports trunk or limbs, but provides less than half the effort. 2-Substantial/Maximal Assistance-helper does MORE THAN HALF the effort. [place] lifts or holds trunk or limbs and provides more than half the effort. 6-Hrrovhbeb-wjmbqh does ALL the effort. Patient does none of the effort to complete the activity. Or, the assistance of 2 or more helpers is required for the patient to complete the activity. If activity was not attempted, code reason: 7-Patient Refused. 9-Not Applicable-not attempted and the patient did not perform the activity before the current illness, exacerbation or injury. 10-Not Attempted due to Environmental Limitations-(lack of equipment, weather restraints, etc.). 88-Not Attempted due to Medical Conditions or Safety Concerns. Bed Mobility: 6 Transfers (B,C,W/C): 6 Gait: 6 Stairs: 6 Indoor Mobility (Ambulation): Independent Stairs: Independent Prior Device Use: Walking stick PT Evaluation-Current Subjective Patient sitting in chair upon PT arrival, agreeable to treatment. Patient rates pain at 0/10. Objective Patient Orientation: Person, Place, Time, Situation ROM/Strength ROM Lower Extremities WFLs BLEs all planes Strength Lower Extremities 5/5 BLEs all planes Sensory Vision: Wears Glasses Hearing: Functional Sensation Right Lower Extremit: Intact Sensation Left Lower Extremity: Intact Transfers Roll Left to Right (QC): 4 Sit to Lying (QC): 4 Lying to Sitting/Side of Bed(Q: 4 Sit to Stand (QC): 4 Chair/Gyq-qw-Mptvt Xfer(QC): 4 Gait Does the Patient Walk?: Yes Mode of Locomotion: Walk Anticipated Mode of Locomotion: Walk Walk 10 feet (QC): 4 Walk 50 ft with 2 Turns(QC): 4 Walk 150 ft (QC): 4 Distance: 150' Gait Assistive Device: None Balance Sitting Static: Normal Sitting Dynamic: Normal Standing Static: Fair Standing Dynamic: Fair Assessment/Needs Patient as baseline PLOF with all bed mobility and transfers, as well as gait. No further PT recommended at this time. Rehab Potential: Good PT Plan Treatment/Plan Treatment Plan: Continue Plan of Care Treatment Duration: Nov 04, 2022 Frequency: Patient and/or Family Agrees t: Yes Discharge Recommendations Therapy Discharge Recommendati: Post Acute PT Time Time In: 1037 Time Out: 1052 DATE: Nov 04, 2022 Total Billed Treatment Time: 15 Total Billed Treatment Visit, LEÓN PAYNE PT Nov 04, 2022 11:05
--- NOTE | 2022-11-04 11:07 | Occupational Therapy Eval ---
OT Evaluation-General/PLF Medical Diagnosis Admission Date Nov 03, 2022 at 11:24 Medical Diagnosis: CHEST PAIN, HTN, HYPOTENSION Onset Date: Nov 03, 2022 Therapy Diagnosis Therapy Diagnosis: tremors Height/Weight Height (Feet): 5 Height (Inches): 7.00 Weight (Pounds): 178 Precautions Precautions/Isolations: Fall Prevention, Standard Precautions Referral Physician: THOR Referral Reason: Activity Tolerance, Self Care, Evaluation/Treatment, Strengthening/ROM Medical History Additional Medical History Essential tremors. New onset of full body "SHAKES" and tremors. Reviewed History: Yes Social History Home: Single Level Current Living Status: Children (adult grandson) Steps Into Home: 2 ADL-Prior Level of Function SCALE: Activities may be completed with or without assistive devices. 9-Qbhnwzangb-cmoyapv completes the activity by him/herself with no assistance from a helper. 5-Set-up or Clean-up Assistance-helper sets up or cleans up; patient completes activity. [place] assists only prior to or following the activity. 4-Supervision or Touching Assistance-helper provides verbal cues and/or touching/steadying and/or contact guard assistance as patient completes activity. Assistance may be provided throughout the activity or intermittently. 3-Partial/Moderate Assistance-helper does LESS THAN HALF the effort. [place] lifts, holds or supports trunk or limbs, but provides less than half the effort. 2-Substantial/Maximal Assistance-helper does MORE THAN HALF the effort. [place] lifts or holds trunk or limbs and provides more than half the effort. 3-Jeghurqqa-tapmfy does ALL the effort. Patient does none of the effort to complete the activity. Or, the assistance of 2 or more helpers is required for the patient to complete the activity. If activity was not attempted, code reason: 7-Patient Refused. 9-Not Applicable-not attempted and the patient did not perform the activity before the current illness, exacerbation or injury. 10-Not Attempted due to Environmental Limitations-(lack of equipment, weather restraints, etc.). 88-Not Attempted due to Medical Conditions or Safety Concerns. ADL PLOF Comments Independent w/ I/ADLS and active in community Self Care: Independent Functional Cognition: Independent DME/Equipment: Shower, Tub/Shower Drive Self: Yes OT Current Status Subjective Agreeable to OT, granddaughter is present in room Pain Numeric Pain Scale: 0-No Pain Mental Status/Objective Patient Orientation: Person, Place, Time, Situation Attachments: IV (port only) Current Glasses/Contacts: Yes Hearing Aids: No Hand Dominance: Right Upper Extremity ROM WFLs Upper Extremity Coordination FAIR + essential tremors in hands Upper Extremity Sensation INTACT Upper Extremity Strength 4/5 BUE, rug hooker hand 4/5 ADL-Treatment Eating (QC): 6 Oral Hygiene (QC): 6 Shower/Bathe Self (QC): 7 Upper Body Dressing (QC): 6 Lower Body Dressing (QC): 6 On/Off Footwear (QC): 6 (including compression socks) Toileting Hygiene (QC): 6 Education OT Patient Education: Energy conservation, Modified ADL techniques, Purpose of tx/functional activities, Rehab process, Safety issues Teaching Recipient: Patient, Family Teaching Methods: Demonstration, Discussion Response to Teaching: Verbalize Understanding, Return Demonstration OT [facility]itentiary Goals Market Developer Goals 1=Demonstrate adherence to instructed precautions during ADL tasks. 2=Patient will verbalize/demonstrate understanding of assistive devices/modifications for ADL. 3=Patient will improve strength/tolerance for activity to enable patient to perform ADL's. OT Education/Plan Problem List/Assessment Assessment: No Skilled OT Needs ID'd Discharge Recommendations Plan/Recommendations: Discontinue OT Treatment Plan/Plan of Care Patient would benefit from OT for education, treatment and training to promote independence in ADL's, mobility, safety and/or upper extremity function for ADL's. Plan of Care: OTHER (EVAL ONLY) Comment resting comfortably in recliner w/ family present, all needs met Treatment Duration: Nov 04, 2022 Frequency: 1 time per week Estimated Hrs Per Day: .25 hour per day Agreement: Yes Rehab Potential: Good Time Start Time: 10:40 Stop Time: 11:01 DATE: Nov 04, 2022 Total Time Billed (hr/min): 21 Billed Treatment Time EVL 21 min KAREN KENT OT Nov 04, 2022 11:07
[2022-11-04] MEDS ORDERED: LOSA100T58 PO (11:19)
--- NOTE | 2022-11-04 11:19 | Discharge Summary ---
Diagnosis/Chief Complaint Date of Admission Nov 03, 2022 at 11:24 Date of Discharge Discharge Date: Nov 04, 2022 Discharge Diagnosis Assessment: B/l essential tremor - suspected Parkinson's hyper & hypotension pre-renal BRETT orthostasis hypothyroidism increased fall risk due to advanced age athersclerosis cardiomegaly w/ vascular congestion Plan: Continue monitoring BP and vitals Fall risk Follow up with US of carotid stenosis Discharge Summary Discharge Physical Examination Allergies: Coded Allergies: No Known Allergies (Unverified Allergy, Unknown, 11/03/22) Patient and related family reported no known allergies Vitals & I&Os Vital Signs Date Time Temp Pulse Resp B/P (MAP) Pulse Ox O2 Delivery O2 Flow Rate FiO2 11/04/22 11:55 154/87 97 Room Air 11/04/22 11:55 36.5 63 14 General Appearance: Alert, Oriented X3, Cooperative, Other (tremor) Respiratory: Clear to Auscultation Cardiovascular: Regular Rate Psych/Mental Status: Mental Status NL Hospital Course Was the Problem List Reviewed?: Yes Hospital course: 77 y/o patient with a significant history of hypothyroidism and essential tremors presented to the ED with full body tremors and hypertensive crisis with BP of 208/107. She also mentioned some non radiating left sided chest pain. Initial labs showed pre-renal BRETT. On the night of 11/02/22 patient felt dizzy and lightheaded and her family reported her having multiple full body "seizure like" tremors before her arrival. While in the ED the tremors stayed isolated to her arms. The ED physician reported highly variable BP ranging from 70's to 160's and multiple syncope like episodes where the patient would feel lightheaded and drop their head to the side, but not loose consciousness. P suzy said she was able to hear everything during this time. Her grandson reported the longest syncopial episode to be around 45 sec. Patient was moved into the cardiac stepdown unit on 11/03/22 and she reported no recurrence of chest pain, syncope, or body tremors. on 11/04/22 her tremors returned to baseline and was able to ambulate, urinate, eat, and pass stool without problems. Patient was started on losartan. CTA did show a plaque in the right carotid near bifurcation with 50% stenosis and CT of chest showed mild cardiomegaly with vascular congestion. Follow up D Echo displayed normal LV, EF 55-60%. Grade 1 diastolic dysfunction. Labs (last 24 hrs) Laboratory Tests 11/03/22 05:30: White Blood Count 6.6, Red Blood Count 4.58, Hemoglobin 14.0, Hematocrit 41, Mean Corpuscular Volume 90, Mean Corpuscular Hemoglobin 31, Mean Corpuscular Hemoglobin Concent 34, Red Cell Distribution Width 12.6, Platelet Count 214, Mean Platelet Volume 9.3, Immature Granulocyte % (Auto) 1, Neutrophils (%) (Au to) 64, Lymphocytes (%) (Auto) 23, Monocytes (%) (Auto) 7, Eosinophils (%) (Auto) 6, Basophils (%) (Auto) 1, Neutrophils # (Auto) 4.2, Lymphocytes # (Auto) 1.5, Monocytes # (Auto) 0.4, Eosinophils # (Auto) 0.4H, Basophils # (Auto) 0.0, Immature Granulocyte # (Auto) 0.0, Prothrombin Time 12.3, INR Comment 0.9, Activated Partial Thromboplast Time 32, Sodium Level 141, Potassium Level 3.9, Chloride Level 107, Carbon Dioxide Level 27, Anion Gap 7, Blood Urea Nitrogen 20H, Creatinine 1.32H, Estimat Glomerular Filtration Rate 42, BUN/Creatinine Ratio 15, Glucose Level 92, Calcium Level 9.0, Corrected Calcium 9.0, Magnesium Level 2.0, Total Bilirubin 0.5, Aspartate Amino Transf (AST/SGOT) 20, Alanine Am inotransferase (ALT/SGPT) 15, Alkaline Phosphatase 108, Troponin I < 0.028, Total Protein 6.9, Albumin 4.0 11/03/22 06:02: B-Type Natriuretic Peptide 385.8H, Thyroid Stimulating Hormone (TSH) 6.68H, Free Thyroxine 0.92 11/03/22 07:35: Urine Color YELLOW, Urine Clarity CLEAR, Urine pH 7.5, Urine Specific [place] 1.010L, Urine Protein NEGATIVE, Urine Glucose (UA) NEGATIVE, Urine Ketones NEGATIVE, Urine Nitrite NEGATIVE, Urine Bilirubin NEGATIVE, Urine Urobilinogen 0.2, Urine Leukocyte Esterase NEGATIVE, Urine RBC (Auto) NEGATIVE, Urine RBC NONE, Urine WBC NONE, Urine Squamous Epithelial Cells RARE, Urine Crystals NONE, Urine Bacteria NEGATIVE, Urine Casts NONE, Urine Mucus NEGATIVE, Urine Culture Indicated NO 11/03/22 10:10: Influenza Type A (RT-PCR) Not Detected, Influenza Type B (RT-PCR) Not Detected, SARS-CoV-2 RNA (RT-PCR) Not Detected 11/04/22 04:49: White Blood Count 6.6, Red Blood Count 4.18, Hemoglobin 12.5, Hematocrit 37, Mean Corpuscular Volume 90, Mean Corpuscular Hemoglobin 30, Mean Corpuscular Hemoglobin Concent 33, Red Cell Distribution Width 13.0, Platelet Count 184, Mean Platelet Volume 9.3, Immature Granulocyte % (Auto) 1, Neutrophils (%) (Auto) 64, Lymphocytes (%) (Auto) 23, Monocytes (%) (Auto) 7, Eosinophils (%) (Auto) 6, Basophils (%) (Auto) 1, Neutrophils # (Auto) 4.2, Lymphocytes # (Auto) 1.5, Monocytes # (Auto) 0.4, Eosinophils # (Auto) 0.4H, Basophils # (Auto) 0.0, Immature Granulocyte # (Auto) 0.0, Sodium Level 142, Potassium Level 3.9, Chloride Level 111H, Carbon Dioxide Level 25, Anion Gap 6, Blood Urea Nitrogen 18, Creatinine 1.30, Estimat Glomerular Filtration Rate 43, BUN/Creatinine Ratio 14, Glucose Level 92, Calcium Level 8.3L, Corrected Calcium 8.9, Total Bilirubin 0.5, Aspartate Amino Transf (AST/SGOT) 18, Alanine Aminotransferase (ALT/SGPT) 13, Alkaline Phosphatase 87, Total Protein 5.9L, Albumin 3.2 Pending Labs Laboratory Tests 11/03/22 05:30: White Blood Count 6.6, Red Blood Count 4.58, Hemoglobin 14.0, Hematocrit 41, Mean Corpuscular Volume 90, Mean Corpuscular Hemoglobin 31, Mean Corpuscular Hemoglobin Concent 34, Red Cell Distribution Width 12.6, Platelet Count 214, Mean Platelet Volume 9.3, Immature Granulocyte % (Auto) 1, Neutrophils (%) (Auto) 64, Lymphocytes (%) (Auto) 23, Monocytes (%) (Auto) 7, Eosinophils (%) (Auto) 6, Basophils (%) (Auto) 1, Neutrophils # (Auto) 4.2, Lymphocytes # (Auto) 1.5, Monocytes # (Auto) 0.4, Eosinophils # (Auto) 0.4, Basophils # (Auto) 0.0, Immature Granulocyte # (Auto) 0.0, Prothrombin Time 12.3, INR Comment 0.9, Activated Partial Thromboplast Time 32, Sodium Level 141, Potassium Level 3.9, Chloride Level 107, Carbon Dioxide Level 27, Anion Gap 7, Blood Urea Nitrogen 20, Creatinine 1.32, Estimat Glomerular Filtration Rate 42, BUN/Creatinine Ratio 15, Glucose Level 92, Calcium Level 9.0, Corrected Calcium 9.0, Magnesium Level 2.0, Total Bilirubin 0.5, Aspartate Amino Transf (AST/SGOT) 20, Alanine Aminotransferase (ALT/SGPT) 15, Alkaline Phosphatase 108, Troponin I < 0.028, Total Protein 6.9, Albumin 4.0 11/03/22 06:02: B-Type Natriuretic Peptide 385.8, Thyroid Stimulating Hormone (TSH) 6.68, Free Thyroxine 0.92 11/03/22 07:35: Urine Color YELLOW, Urine Clarity CLEAR, Urine pH 7.5, Urine Specific [place] 1.010, Urine Protein NEGATIVE, Urine Glucose (UA) NEGATIVE, Urine Ketones NEGATIVE, Urine Nitrite NEGATIVE, Urine Bilirubin NEGATIVE, Urine Urobilinogen 0.2, Urine Leukocyte Esterase NEGATIVE, Urine RBC (Auto) NEGATIVE, Urine RBC NONE, Urine WBC NONE, Urine Squamous Epithelial Cells RARE, Urine Crystals NONE, Urine Bacteria NEGATIVE, Urine Casts NONE, Urine Mucus NEGATIVE, Urine Culture Indicated NO 11/03/22 10:10: Influenza Type A (RT-PCR) Not Detected, Influenza Type B (RT-PCR) Not Detected, SARS-CoV-2 RNA (RT-PCR) Not Detected 11/04/22 04:49: White Blood Count 6.6, Red Blood Count 4.18, Hemoglobin 12.5, Hematocrit 37, Mean Corpuscular Volume 90, Mean Corpuscular Hemoglobin 30, Mean Corpuscular Hemoglobin Concent 33, Red Cell Distribution Width 13.0, Platelet Count 184, Mean Platelet Volume 9.3, Immature Granulocyte % (Auto) 1, Neutrophils (%) (Auto) 64, Lymphocytes (%) (Auto) 23, Monocytes (%) (Auto) 7, Eosinophils (%) (Auto) 6, Basophils (%) (Auto) 1, Neutrophils # (Auto) 4.2, Lymphocytes # (Auto) 1.5, Monocytes # (Auto) 0.4, Eosinophils # (Auto) 0.4, Basophils # (Auto) 0.0, Immature Granulocyte # (Auto) 0.0, Sodium Level 142, Potassium Level 3.9, Chloride Level 111, Carbon Dioxide Level 25, Anion Gap 6, Blood Urea Nitrogen 18, Creatinine 1.30, Estimat Glomerular Filtration Rate 43, BUN/Creatinine Ratio 14, Glucose Level 92, Calcium Level 8.3, Corrected Calcium 8.9, Total Bilirubin 0.5, Aspartate Amino Transf (AST/SGOT) 18, Alanine Aminotransferase (ALT/SGPT) 13, Alkaline Phosphatase 87, Total Protein 5.9, Albumin 3.2 Discharge Home Medications: Active Scripts Active Losartan Potassium 100 Mg Tablet 100 Mg PO DAILY Reported Loratadine 10 Mg Tablet 10 Mg PO HS Multivitamin 1 Each Tablet 1 Each PO DAILY Aspirin EC (Aspirin) 81 Mg Tablet.dr 81 Mg PO 1200 Pramipexole Dihydrochloride (Pramipexole Di-HCl) 0.5 Mg Tablet 0.5 Mg PO BID Atenolol 50 Mg Tablet 100 Mg PO BID TAKES 2 (50MG) TABS Levothyroxine Sodium 125 Mcg Tablet 62.5 Mcg PO GOMEZ,SA TAKES OF A 125MCG TAB Levothyroxine Sodium 125 Mcg Tablet 125 Mg PO MO,,WE,TH,FR Instructions to patient/family Please see electronic discharge instructions given to patient. Diagnosis/Problems Diagnosis/Problems (1) Near syncope Status: Acute (2) Hypertensive urgency Status: Acute (3) Hypotension Status: Acute Qualifiers: Qualified Codes: I95.9 - Hypotension, unspecified (4) Tremor Status: Acute Clinical Quality Measures AMI/AHF: ASA po Prior to arrival: Yes DARNELL MCRAE DO Nov 04, 2022 11:19
[2022-11-04 11:55] VITALS: BP_SYST 154; BP_SYST 175; BP_DIAS 85; BP_DIAS 87
[2022-11-04] MEDS ORDERED: ASPIRIN enteric coated 81MG TABLET PO SCH (12:00)
--- NOTE | 2022-11-04 15:59 | Progress Note ---
S[facility] 11/04/22 1559: Progress Note Hospital course: 77 y/o patient with a significant history of hypothyroidism and essential tremors presented to the ED with full body tremors and hypertensive crisis with BP of 208/107. She also mentioned some non radiating left sided chest pain. Initial labs showed pre-renal BRETT. On the night of 11/02/22 patient felt dizzy and lightheaded and her family reported her having multiple full body "seizure like" tremors before her arrival. While in the ED the tremors stayed isolated to her arms. The ED physician reported highly variable BP ranging from 70's to 160's and multiple syncope like episodes where the patient would feel lightheaded and drop their head to the side, but not loose consciousness. Patient said she was able to hear everything during this time. Her grandson reported the longest syncopial episode to be around 45 sec. Patient was moved into the cardiac stepdown unit on 11/03/22 and she reported no recurrence of chest pain, syncope, or body tremors. on 11/04/22 her tremors returned to baseline and was able to ambulate, urinate, eat, and pass stool without problems. Patient was started on losartan. CTA did show a plaque in the right carotid near bifurcation with 50% stenosis and CT of chest showed mild cardiomegaly with vascular congestion. Follow up D Echo displayed normal LV, EF 55-60%. Grade 1 diastolic dysfunction. PHILLY MCRAE DO 11/04/22 2001: Supervisory-Addendum Brief Verification & Attestation Participated in pt care: history, MDM, physical Personally performed: exam, history, MDM, supervision of care Care discussed with: Medical Student Procedures: n/a Results interpretation: Verified all documentation Verification and Attestation of Medical Student E/M Service A medical student performed and documented this service in my presence. I reviewed and verified all information documented by the medical student and made modifications to such information, when appropriate. I personally performed the physical exam and medical decision making. Philly Mcrae, Nov 04, 2022,20:01 [facility] Nov 04, 2022 15:59 PHILLY MCRAE DO Nov 04, 2022 20:01
== END 2022-11-04 12:01 | disposition home or self-care (01) ==
LOC: EDUNIT# 05:15 → ER 05:17 → ICU 11:24 → UNDOADMOB 11:24 → ICU 11:27 → CSD 11:27 → ICU 11:43 → UNDODISOB 11-04 12:01
PROVIDERS: ADMIT Internal Medicine; ATTEND Internal Medicine
DX: G25.0 Essential tremor (principal); I16.0 Hypertensive urgency; I95.9 Hypotension, unspecified; N17.9 Acute kidney failure, unspecified; I95.1 Orthostatic hypotension; I70.90 Unspecified atherosclerosis; I11.9 Hypertensive heart disease without heart failure; G20 Parkinson's disease; E03.9 Hypothyroidism, unspecified; G47.33 Obstructive sleep apnea (adult) (pediatric); Z79.890 Hormone replacement therapy; Z87.891 Personal history of nicotine dependence; Z79.82 Long term (current) use of aspirin; Z79.899 Other long term (current) drug therapy
CPT/HCPCS: 51702; 70496; 70498; 71045; 80053 ×2; 81000; 83735; 83880; 84439; 84443; 84484; 85025 ×2; 85610; 85730; 87636; 93005; 93041; 93880; 94760; 97161; 97166; 99284; C8929; 36415; 93306; 96372

== ENCOUNTER → 2022-11-30 | Outpatient (CLI) | payer MEDICARE, MEDICAID ==
[~2022-11-30] MED LIST changes: +ASPI-1238 PO; +ATEN50TA PO; +LEVO125T6 PO; +LORA10TA7 PO; +LOSA100T58 PO; +MULT-1136 PO; +PRAM0.5T9 PO
--- NOTE | 2022-11-30 14:13 | Diagnostic Imaging Report ---
PROCEDURE: US Renal/Bladder. TECHNIQUE: Multiple real-time grayscale images were obtained over the kidneys in various projections bilaterally. Additional color Doppler ultrasound was performed of the renal arteries. INDICATION: Hypertension. COMPARISON: None. FINDINGS: Right: The right kidney measures 5.5 cm in length. There is thinning of the renal cortex on the right. There is no evidence of calculi, solid focal mass or hydronephrosis. No perinephric fluid collections are identified. There is diminished peak systolic velocity within the right renal artery measuring 38 cm/s with a right renal artery to aorta ratio of 0.39. Resistive indices were unable to be obtained through the arcuate arteries in the right kidney. Left: The left kidney measures 11.0 cm in length. Renal cortical thickness and echogenicity are within normal limits. There is no evidence of calculi, solid focal mass or hydronephrosis. No perinephric fluid collections are identified. The peak systolic velocity within the left renal artery measures 157 cm/s. The left renal artery to aorta ratio is 1.7. The resistive indices within the arcuate arteries range from 0.5-0.62. There is no abdominal ascites. The aorta peak systolic velocity is 97 cm/s. IMPRESSION: 1. Atrophic appearance of the right kidney relative to the left with diminished blood flow to the right kidney. 2. No sonographic evidence of renal artery stenosis. Dictated by: Dictated on workstation # [id number]
== END ==
LOC: RAD 07:31
PROVIDERS: ATTEND Internal Medicine Cardiovascular Disease
DX: N26.1 Atrophy of kidney (terminal) (principal); I10 Essential (primary) hypertension; I25.10 Atherosclerotic heart disease of native coronary artery without angina pectoris
CPT/HCPCS: 76770; 93975

== ENCOUNTER → 2023-01-04 | Outpatient (CLI) | payer MEDICARE ==
[~2023-01-04] MED LIST changes: +CATHETER FLUSH 10 ML SYR IV PRN; +HOLD METFORMIN - RECEIVED CONTRAST 20 ML VIAL IV SCH; +IOHEXOL 350 MG/ML 100 ML (OMNIPAQUE 350) VIAL IV ONE; +NS 100 ML (IVPB) BAG IV ONE
[2023-01-04 08:18] LABS: CREATININE SERUM 1.43 MG/DL (0.60-1.30)
--- NOTE | 2023-01-04 10:13 | Diagnostic Imaging Report ---
Indication: Renal atrophy and diminished blood flow to right kidney noted on a prior renal Doppler. Axial imaging through the abdomen and pelvis was performed after the administration of intravenous contrast utilizing CT angiography protocol. Multiplanar, 3-D and mid reformations were also performed. Correlation is made with prior renal Doppler evaluation from 11/30/2022. The abdominal aorta shows significant atherosclerotic changes but is nonaneurysmal. 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 No extension into the iliac arteries is identified. Bilateral common and external iliac arteries as well as bilateral common femoral arteries. Be widely patent. Celiac and SMA are patent. There is some mild mild to moderate narrowing at the proximal SMA. The SHARIFA is patent. There is marked renal asymmetry with the right kidney being much smaller, described on recent ultrasound. Right kidney is atrophic and shows cortical thinning. The right renal artery is also very small. There is asymmetric perfusion, being decreased in the right kidney. Left kidney as well as the left renal artery are unremarkable. No renal mass or calculi are seen. There is no hydronephrosis. No focal liver mass is identified. Gallbladder is unremarkable. The pancreas, spleen and adrenal glands are unremarkable. Bowel loops are nonobstructed. There is diverticulosis of the descending and sigmoid colon but no evidence of acute radiculitis. Uterus and bladder are unremarkable. There is no ascites. No inflammatory changes are seen. There are some calcifications and postop changes at to the anterior abdominal wall, likely from prior hernia repair. There is a small fat-containing umbilical hernia. IMPRESSION: 1. Right renal atrophy with very small right renal artery. There is diminished perfusion to the right kidney compared to the normal-appearing left kidney. No renal mass, calculi or hydronephrosis is detected. 2. Uncomplicated diverticulosis. Dictated by: Dictated on workstation # [id number]
== END ==
LOC: RAD 08:30
PROVIDERS: ATTEND Physician Assistant
DX: N26.1 Atrophy of kidney (terminal) (principal); K57.90 Diverticulosis of intestine, part unspecified, without perforation or abscess without bleeding
CPT/HCPCS: 36415; 74175; 82565; 84520

== ENCOUNTER → 2023-02-25 | Outpatient (CLI) | payer MEDICARE ==
[~2023-02-25] MED LIST changes: -CATHETER FLUSH 10 ML SYR IV PRN; -HOLD METFORMIN - RECEIVED CONTRAST 20 ML VIAL IV SCH; -IOHEXOL 350 MG/ML 100 ML (OMNIPAQUE 350) VIAL IV ONE; -NS 100 ML (IVPB) BAG IV ONE
[2023-02-25 14:11] LABS: HEMATOCRIT 40 % (35-52); HEMOGLOBIN 14.1 g/dL (11.5-16.0); MEAN CORPUSCULAR HEMOGLOBIN 31 pg (25-34); MEAN CORPUSCULAR HGB CONC 35 g/dL (32-36); MEAN CORPUSCULAR VOLUME 88 fL (80-99); MEAN PLATELET VOLUME 8.8 fL (9.0-12.2); PLATELET COUNT 237 10^3/uL (130-400); WHITE BLOOD COUNT 6.6 10^3/uL (4.3-11.0)
[2023-02-25 14:21] LABS: ALBUMIN 4.1 GM/DL (3.2-4.5)
[2023-02-25 14:22] LABS: POTASSIUM 4.6 MMOL/L (3.6-5.0)
[2023-02-25 14:23] LABS: CALCIUM 9.2 MG/DL (8.5-10.1)
[2023-02-25 14:26] LABS: BILIRUBIN,URINE NEGATIVE (NEGATIVE); CLARITY,URINE CLEAR; COLOR,URINE YELLOW; GLUCOSE, URINE (UA) NEGATIVE (NEGATIVE); KETONES,URINE NEGATIVE (NEGATIVE); LEUKOCYTE ESTERASE ,URINE NEGATIVE (NEGATIVE); NITRITE,URINE NEGATIVE (NEGATIVE); PROTEIN,URINE NEGATIVE (NEGATIVE)
[2023-02-25 14:27] LABS: CREATININE SERUM 1.94 MG/DL (0.60-1.30); PHOSPHORUS 3.3 MG/DL (2.3-4.7)
[2023-02-25 14:27] LABS: BACTERIA,URINE FEW /HPF; WBC,URINE RARE /HPF
[2023-02-25 14:30] LABS: URIC ACID 9.1 MG/DL (2.6-7.2)
[2023-02-25 14:35] LABS: URINE CREATININE FOR RATIO 71 MG/DL (30-125)
[2023-02-25 14:36] LABS: URINE PROTEIN FOR RATIO ONLY < 6 MG/DL (6-12)
== END ==
LOC: LAB 13:56
PROVIDERS: ATTEND Internal Medicine Nephrology
DX: I12.9 Hypertensive chronic kidney disease with stage 1 through stage 4 chronic kidney disease, or unspecified chronic kidney disease (principal); N18.32 Chronic kidney disease, stage 3b
CPT/HCPCS: 36415; 80069; 81000; 82088; 82306; 82570; 83970; 84156; 84244; 84550; 85027